=== PATIENT | female | born 1980 | race Caucasian/White ===

== ENCOUNTER 2022-06-15 06:56 | Emergency (ER) | payer OTHER ==
[~2022-06-15] VITALS: Ht 152.4 cm; Wt 68.9 kg
== END 2022-06-15 12:12 | disposition home or self-care (01) ==
LOC: ER 06:56
DX: R10.11 Right upper quadrant pain (principal); Z88.6 Allergy status to analgesic agent; Z88.2 Allergy status to sulfonamides; Z91.013 Allergy to seafood; Z91.018 Allergy to other foods

== ENCOUNTER 2022-11-08 15:54 | Emergency (ER) | payer OTHER ==
[~2022-11-08] VITALS: Ht 152.4 cm; Wt 69.4 kg
== END 2022-11-08 19:52 | disposition home or self-care (01) ==
LOC: ER 15:54
DX: S89.91XA Unspecified injury of right lower leg, initial encounter (principal); S79.919A Unspecified injury of unspecified hip, initial encounter; W18.30XA Fall on same level, unspecified, initial encounter; Y93.9 Activity, unspecified; Y92.9 Unspecified place or not applicable; Y99.9 Unspecified external cause status

== ENCOUNTER 2023-06-04 11:15 | Emergency (ER) | payer OTHER ==
[~2023-06-04] VITALS: Ht 152.4 cm; Wt 71.2 kg
[2023-06-04] MEDS ORDERED: DIPHENHYDRAMINE HCL 50 MG/ML VIAL 1ML IV ONE (14:45)
[2023-06-04] MEDS ORDERED: 0.9 % SODIUM CHLORIDE 1,000 ML IV SCH (15:00)
[2023-06-04 15:10] LABS: HEMATOCRIT 41.4 % (36.0-45.00); HEMOGLOBIN 13.9 g/dL (12.0-15.00); MEAN CELL VOLUME 85.3 fL (80.00-100.00); MEAN CORPUSCULAR HEMOGLOBIN 28.7 pg (27.00-32.0); MEAN CORPUSCULAR HGB CONC 33.7 g/dl (32.0-36.0); PLATELET COUNT 328 K/uL (150-450); RED BLOOD COUNT 4.85 M/uL (4.00-6.00); RED CELL DISTRIBUTION WIDTH 13.6 % (11.5-14.5)
[2023-06-04] MEDS ORDERED: DEXAMETHASONE SODIUM PHOSPHATE 4 MG/ML VIAL IV STA (18:57)
[2023-06-05] MEDS ORDERED: BENADRYL ALLERG50 MG PO (02:12)
== END 2023-06-04 19:29 | disposition home or self-care (01) ==
LOC: ER 11:15
PROVIDERS: General Practice
DX: T78.49XA Other allergy, initial encounter (principal); Z88.2 Allergy status to sulfonamides; Z88.6 Allergy status to analgesic agent; Z88.0 Allergy status to penicillin; Z91.018 Allergy to other foods; Z91.013 Allergy to seafood; I73.00 Raynaud's syndrome without gangrene; L50.9 Urticaria, unspecified
CPT/HCPCS: 36415; 96365; 96366; 99282; J1100; J1200; J7030

== ENCOUNTER 2023-06-04 21:30 | Emergency (ER) | payer OTHER ==
[~2023-06-04] VITALS: Ht 152.4 cm; Wt 71.2 kg
[2023-06-04] MEDS ORDERED: METHYLPREDNISOLONE SOD SUCC 125 MG VIAL IV STA (22:47)
[2023-06-04] MEDS ORDERED: DIPHENHYDRAMINE HCL 50 MG/ML VIAL 1ML IV STA (22:47)
[2023-06-05] MEDS ORDERED: BENADRYL ALLERG50 MG PO (02:12)
== END 2023-06-05 02:20 | disposition home or self-care (01) ==
LOC: ER 21:30
DX: L50.9 Urticaria, unspecified (principal); L29.9 Pruritus, unspecified; Z88.1 Allergy status to other antibiotic agents; Z88.6 Allergy status to analgesic agent; Z88.8 Allergy status to other drugs, medicaments and biological substances
CPT/HCPCS: 96365; 99282; J1200; J3490

== ENCOUNTER 2023-06-06 07:41 | Inpatient (IN) | payer OTHER ==
[~2023-06-06] VITALS: Ht 152.4 cm; Wt 71.2 kg
[~2023-06-06 07:41] MED LIST: BENADRYL ALLERG50 MG PO
[2023-06-06] MEDS ORDERED: DEXTROSE 5 % AND 0.9 % NACL 500 ML IV STA (08:33)
[2023-06-06] MEDS ORDERED: METHYLPREDNISOLONE SOD SUCC 125 MG VIAL IV STA (08:35)
[2023-06-06] MEDS ORDERED: DIPHENHYDRAMINE HCL 50 MG/ML VIAL 1ML IV SCH ×2 (08:45→21:00)
[2023-06-06 08:52] LABS: PH,URINE 6.5 (5.0-8.0); URINE APPEARANCE Clear; URINE BILIRRUBIN Negative (NEGATIVE); URINE BLOOD Moderate; URINE COLOR Dark Yellow; URINE GLUCOSE Negative (NEGATIVE); URINE LEUKOCYTE Negative; URINE NITRATE Negative; URINE PROTEIN 30 (NEGATIVE)
[2023-06-06 08:53] LABS: URINE BACTERIA 1199.5 uL (0.0-1933); URINE EPITHELIAL CELLS 9.2 uL (0.0-38.8); URINE RBC 93.8 uL (0.0-20.8); URINE WBC 5.7 uL (0.0-23.2)
[2023-06-06 09:28] LABS: HEMATOCRIT 39.3 % (36.0-45.00); HEMOGLOBIN 13.2 g/dL (12.0-15.00); MEAN CELL VOLUME 85.4 fL (80.00-100.00); MEAN CORPUSCULAR HEMOGLOBIN 28.7 pg (27.00-32.0); MEAN CORPUSCULAR HGB CONC 33.6 g/dl (32.0-36.0); PLATELET COUNT 325 K/uL (150-450); RED BLOOD COUNT 4.61 M/uL (4.00-6.00); RED CELL DISTRIBUTION WIDTH 13.3 % (11.5-14.5)
[2023-06-06 09:39] LABS: ERYTHROCYTE SEDIMENTATION RATE 48 mm/hr
[2023-06-06 09:51] LABS: ALBUMIN 3.3 gm/dL (3.4-5.0); BILIRUBIN TOTAL 0.74 mg/dL (0.3-1.2); CALCIUM 8.6 mg/dL (8.5-10.1); CREATININE SERUM 0.89 mg/dL (0.55-1.02); GFR 68.59; GLOBULINA 3.7 G/DL (2.4-3.5); POTASSIUM 3.36 mEq/L (3.5-5.1)
[2023-06-06] MEDS ORDERED: METHYLPREDNISOLONE SOD SUCC 40 MG VIAL IV SCH (13:56)
[2023-06-06] MEDS ORDERED: ONDANSETRON HCL 4 MG in 0.9 % SODIUM CHLORIDE 50 ML IV PRN (14:00)
[2023-06-06] MEDS ORDERED: 0.9 % SODIUM CHLORIDE 1,000 ML IV SCH (14:00)
[2023-06-06] MEDS ORDERED: ACETAMINOPHEN 325 MG TABLET PO PRN (14:00)
[2023-06-06 15:49] LABS: INR 1.04; PARTIAL THROMBOPLASTIN TIME 28.3 SECONDS (22.0-34.0); PROTHROMBIN TIME 10.9 SECONDS (9.0-11.5)
[2023-06-07 17:26] LABS: PH,URINE 7.5 (5.0-8.0); URINE APPEARANCE Clear; URINE BILIRRUBIN Negative (NEGATIVE); URINE BLOOD Trace; URINE COLOR Yellow; URINE GLUCOSE Negative (NEGATIVE); URINE LEUKOCYTE Negative; URINE NITRATE Negative; URINE PROTEIN Negative (NEGATIVE)
[2023-06-07 17:29] LABS: URINE BACTERIA 46.6 uL (0.0-1933); URINE RBC 4.4 uL (0.0-20.8)
[2023-06-07 18:13] LABS: URINE EPITHELIAL CELLS 0.4 uL (0.0-38.8); URINE WBC 0.2 uL (0.0-23.2)
[2023-06-09 07:09] LABS: HEPATITIS C VIRUS ANTIBODY Non Reactive (Non Reactive); hav igm Negative (Negative); hcv Non Reactive (Non Reactive); hep b c Negative (Negative)
[2023-06-09 09:08] LABS: COMPLEMENT C3 164 mg/dL (82-167); COMPLEMENT C4 24 mg/dL (12-38)
[2023-06-09 15:12] LABS: ANTI JO 1 < 0.2 AI (0.0-0.9); ANTI RIBOSOMAL AB < 0.2 AI (0.0-0.9); ANTI SCLERODERMA 70 < 0.2 AI (0.0-0.9); ANTI-CENTROMERE AB <0.2 AI (0.0-0.9); DNA AB DOUBLE STRABDED < 1 IU/mL (0-9)
[2023-06-10 07:10] LABS: CH 50 COMPLEMENT > 60 U/mL (>41)
[2023-06-10 21:05] LABS: anti MPO AB < 0.2 units (0.0-0.9); anti pr3 < 0.2 units (0.0-0.9); c anca <1:20 titer (Neg:<1:20); p anca <1:20 titer (Neg:<1:20)
== END 2023-06-08 20:08 | disposition home or self-care (01) | DRG 607 ==
LOC: ER 07:41 → SURG 14:29 → SEC-K 14:29 → MEDI 06-07 01:11 → SURG 06-07 01:31
PROVIDERS: Emergency Medicine; General Practice; Internal Medicine Infectious Disease; ADMIT Internal Medicine; ATTEND Internal Medicine
PROC: BW21ZZZ Computerized Tomography (CT Scan) of Abdomen and Pelvis (ICD-10-PCS; principal; 2023-06-06)
DX: L50.9 Urticaria, unspecified (principal); L29.9 Pruritus, unspecified; T78.40XA Allergy, unspecified, initial encounter

== ENCOUNTER → 2024-11-02 07:31 | Outpatient (CLI) | payer OTHER | END | disposition home or self-care (01) | LOC: LAB 07:31 | DX: L50.0 Allergic urticaria (principal); L50.5 Cholinergic urticaria; Z87.892 Personal history of anaphylaxis; Z91.010 Allergy to peanuts; Z91.018 Allergy to other foods; T78.40XA Allergy, unspecified, initial encounter; L93.1 Subacute cutaneous lupus erythematosus ==

== ENCOUNTER → 2024-12-21 07:47 | Outpatient (CLI) | payer OTHER | END | disposition home or self-care (01) | LOC: LAB 07:47 | PROVIDERS: ATTEND Allergy & Immunology Allergy | DX: D84.1 Defects in the complement system (principal); L50.0 Allergic urticaria; T78.3XXD Angioneurotic edema, subsequent encounter; L50.5 Cholinergic urticaria; Z87.892 Personal history of anaphylaxis; Z91.010 Allergy to peanuts; Z91.018 Allergy to other foods; T78.40XA Allergy, unspecified, initial encounter; L93.1 Subacute cutaneous lupus erythematosus ==